=== PATIENT | female | born 1945 | race Caucasian/White ===

== ENCOUNTER → 2017-12-18 | Outpatient (CLI) | payer MEDICARE ==
[2017-12-18 11:02] LABS: Calcium 9.3 mg/dL (8.4-10.2); Potassium 4.8 mmol/L (3.5-5.1); Total Bilirubin 0.3 mg/dL (0.2-1.3); Total Protein 6.7 g/dL (6.3-8.2)
[2017-12-18 11:18] LABS: T4, Free (Free Thyroxine) 1.16 ng/dL (0.78-2.19)
== END | disposition home or self-care (01) ==
LOC: LABWHC1 08:02
PROVIDERS: ATTEND Family Medicine
DX: L74.513 Primary focal hyperhidrosis, soles (principal); R10.84 Generalized abdominal pain
CPT/HCPCS: 36415; 80053; 82024; 82088; 82150; 82533; 83690; 84439; 84443

== ENCOUNTER → 2019-04-13 | Outpatient (CLI) | payer MEDICARE ==
[2019-04-13 20:01] LABS: Follicle Stimulating Hormone 76.1 mIU/mL; T4, Free (Free Thyroxine) 1.5 ng/dL (0.80-1.80)
== END | disposition home or self-care (01) ==
LOC: LABWHC1 12:19
PROVIDERS: ATTEND Internal Medicine Endocrinology, Diabetes & Metabolism
DX: E03.9 Hypothyroidism, unspecified (principal); R23.2 Flushing
CPT/HCPCS: 36415; 83001; 84439; 84443; 84480

== ENCOUNTER → 2019-04-22 | Outpatient (CLI) | payer MEDICARE ==
[2019-04-27 13:39] LABS: Metanephrine, Free <25 pg/mL (< OR = 57); Normetanephrine, Free 73 pg/mL (< OR = 148); Total, Free (MN + NMN) 73 pg/mL (< OR = 205)
== END | disposition home or self-care (01) ==
LOC: LABWHC1 15:21
PROVIDERS: ATTEND Internal Medicine Endocrinology, Diabetes & Metabolism
DX: E03.9 Hypothyroidism, unspecified (principal); R23.2 Flushing
CPT/HCPCS: 36415; 83835